=== PATIENT | female | born 1950 | race Caucasian/White ===

== ENCOUNTER → 2018-08-16 11:23 | Outpatient (CLI) | payer MEDICARE, SELFPAY ==
--- NOTE | 2018-08-16 | DI.MG.S_ITS ---
BILATERAL DIGITAL SCREENING MAMMOGRAM 3D/2D WITH CAD: 08/16/2018 CLINICAL: Routine screening. Comparison is made to exams dated: 06/26/2017 mammogram, 06/24/2016 mammogram, and 01/26/2015 mammogram - [facility]. The tissue of both breasts is extremely dense, which lowers the sensitivity of mammography. Current study was also evaluated with a Computer Aided Detection (CAD) system. No significant masses, calcifications, or other findings are seen in either breast. There has been no significant interval change. IMPRESSION: NEGATIVE There is no mammographic evidence of malignancy. A 1 year screening mammogram is recommended. This exam was interpreted at Station ID: [id number]. NOTE: For mammograms, a report in lay terms will be sent to the patient. Approximately 15% of breast malignancies will not be visualized mammographically. In the management of a palpable breast mass, a negative mammogram must not discourage biopsy of a clinically suspicious lesion. Electronically Signed By: Elina neff/paty:08/16/2018 12:37:27 letter sent: Normal Exam ACR BI-RADS Category 1: Negative 3341F
== END ==
PROVIDERS: Family Provider Family Medicine; PCP Nurse Practitioner Family; Visit Provider Internal Medicine
DX: Z12.31 Encounter for screening mammogram for malignant neoplasm of breast (principal)
CPT/HCPCS: 77063; 77067

== ENCOUNTER → 2019-11-13 08:35 | Outpatient (CLI) | payer MEDICARE, SELFPAY ==
--- NOTE | 2019-11-13 08:38 | DI.MG.S_ITS ---
BILATERAL DIGITAL SCREENING MAMMOGRAM 3D/2D WITH CAD: 11/13/2019 CLINICAL: Routine screening. Comparison is made to exams dated: 08/16/2018 mammogram, 06/26/2017 mammogram, and 06/24/2016 mammogram - [facility]. The tissue of both breasts is extremely dense, which lowers the sensitivity of mammography. Current study was also evaluated with a Computer Aided Detection (CAD) system. No significant masses, calcifications, or other findings are seen in either breast. There has been no significant interval change. IMPRESSION: NEGATIVE There is no mammographic evidence of malignancy. A 1 year screening mammogram is recommended. This exam was interpreted at Station ID: [id number]. NOTE: For mammograms, a report in lay terms will be sent to the patient. Approximately 15% of breast malignancies will not be visualized mammographically. In the management of a palpable breast mass, a negative mammogram must not discourage biopsy of a clinically suspicious lesion. Electronically Signed By: Princess anne/paty:11/13/2019 13:16:08 letter sent: Normal Exam ACR BI-RADS Category 1: Negative 3341F
[2019-11-13 09:24] LABS: Cholesterol 259 mg/dL (140-199); Glucose 113 mg/dL (80-110); Triglycerides 66 mg/dL (35-150)
[2019-11-13 09:36] LABS: HDL Cholesterol 120 mg/dL (40-60); LDL Cholesterol Calculated 126 mg/dL (<100)
== END ==
PROVIDERS: PCP Family Medicine; Visit Provider Family Medicine
DX: Z12.31 Encounter for screening mammogram for malignant neoplasm of breast (principal); Z13.220 Encounter for screening for lipoid disorders; Z13.1 Encounter for screening for diabetes mellitus
CPT/HCPCS: 36415; 77063; 77067; 80061; 82947

== ENCOUNTER → 2020-04-21 15:08 | Outpatient (CLI) | payer MEDICARE, SELFPAY ==
[2020-04-21 17:11] LABS: Hemoglobin A1C% w Est Avg Glu 5.5 % (4.0-6.0)
== END ==
PROVIDERS: PCP Family Medicine; Referring Provider Family Medicine; Visit Provider Family Medicine
DX: R73.9 Hyperglycemia, unspecified (principal)
CPT/HCPCS: 36415; 83036

== ENCOUNTER → 2020-07-17 09:12 | Outpatient (CLI) | payer MEDICARE, SELFPAY ==
--- NOTE | 2020-07-17 09:13 | DI.RAD.S_ITS ---
PROCEDURE: XR WRIST LT MIN 3V INDICATIONS: left wrist injury TECHNIQUE: 4 views of the wrist were acquired. COMPARISON: None. FINDINGS: Bones: Comminuted impacted intra-articular fracture of the distal radial metaphysis. Severe carpal and 1st CMC joint degeneration. Distal radioulnar joint degeneration. Soft tissues: No suspicious soft tissue calcifications. IMPRESSION: Comminuted impacted intra-articular fracture of the distal radial metaphysis. Dictated by: Steffen Dumont M.D. on 07/17/2020 at 10:40 Approved by: Steffen Dumont M.D. on 07/17/2020 at 10:42
== END ==
PROVIDERS: PCP Family Medicine; Referring Provider Family Medicine; Visit Provider Family Medicine
DX: S52.572A Other intraarticular fracture of lower end of left radius, initial encounter for closed fracture (principal); M25.532 Pain in left wrist; X58.XXXA Exposure to other specified factors, initial encounter
CPT/HCPCS: 73110

== ENCOUNTER → 2020-12-03 15:08 | Outpatient (CLI) | payer OTHER, SELFPAY ==
--- NOTE | 2020-12-03 15:10 | DI.MG.S_ITS ---
BILATERAL DIGITAL SCREENING MAMMOGRAM 3D/2D WITH CAD: 12/03/2020 CLINICAL: Routine screening. Comparison is made to exams dated: 11/13/2019 mammogram, 08/16/2018 mammogram, and 06/26/2017 mammogram - [facility]. The tissue of both breasts is extremely dense, which lowers the sensitivity of mammography. Current study was also evaluated with a Computer Aided Detection (CAD) system. No significant masses, calcifications, or other findings are seen in either breast. There has been no significant interval change. IMPRESSION: NEGATIVE There is no mammographic evidence of malignancy. A 1 year screening mammogram is recommended. This exam was interpreted at Station ID: [id number]. NOTE: For mammograms, a report in lay terms will be sent to the patient. Approximately 15% of breast malignancies will not be visualized mammographically. In the management of a palpable breast mass, a negative mammogram must not discourage biopsy of a clinically suspicious lesion. Electronically Signed By: Dread johnston/paty:12/04/2020 18:42:35 letter sent: Normal Exam ACR BI-RADS Category 1: Negative 3341F
== END ==
PROVIDERS: PCP Family Medicine; Referring Provider Orthopaedic Surgery; Visit Provider Orthopaedic Surgery
DX: Z12.31 Encounter for screening mammogram for malignant neoplasm of breast (principal); S52.502A Unspecified fracture of the lower end of left radius, initial encounter for closed fracture; M85.852 Other specified disorders of bone density and structure, left thigh; Z78.0 Asymptomatic menopausal state; Z87.891 Personal history of nicotine dependence
CPT/HCPCS: 77063; 77067; 77080

== ENCOUNTER → 2022-01-19 16:20 | Outpatient (CLI) | payer MEDICARE, SELFPAY ==
--- NOTE | 2022-01-19 16:24 | DI.RAD.S_ITS ---
PROCEDURE: XR LUMBAR SPINE 2-3V INDICATIONS: R low back pain, lifting injury TECHNIQUE: 3 views of the lumbar spine were acquired. COMPARISON: None. FINDINGS: Bones: 5 [id number]-ajn-upzyvlv vertebrae are present. There is straightening of normal lumbar lordosis. Degenerative endplate changes and bilateral facet arthrosis throughout lumbar spine is seen. No vertebral body compression fractures. No suspicious bony lesions. Soft tissues: Overlying bowel gas pattern is normal. No suspicious soft tissue calcifications. IMPRESSION: Degenerative disc disease throughout lumbar spine. No acute compression fracture or spondylolisthesis. Dictated by: Den Garcia M.D. on 01/19/2022 at 16:34 Approved by: Den Garcia M.D. on 01/19/2022 at 16:35
== END ==
PROVIDERS: PCP Family Medicine; Referring Provider Physician Assistant; Visit Provider Physician Assistant
DX: M51.36 Other intervertebral disc degeneration, lumbar region (principal); M54.50 Low back pain, unspecified
CPT/HCPCS: 72100

== ENCOUNTER → 2022-03-24 10:03 | Outpatient (CLI) | payer MEDICARE, SELFPAY ==
[2022-03-24 12:06] LABS: BUN Creatinine Ratio 15.3 (6-22); Blood Urea Nitrogen 13 mg/dL (7-17); Calcium 8.7 mg/dL (8.4-10.2); Carbon Dioxide 31 mmol/L (22-32); Chloride 99 mmol/L (98-107); Estimated Glomerular Filt Rate > 60 mL/min (>60); Glucose 95 mg/dL (80-110); HEMOLYSIS < 15 (0-50); Potassium 4.3 mmol/L (3.4-5.1); Sodium 135 mmol/L (137-145)
== END ==
PROVIDERS: PCP Family Medicine; Referring Provider Family Medicine; Visit Provider Family Medicine
DX: R51.9 Headache, unspecified (principal)
CPT/HCPCS: 36415; 80048

== ENCOUNTER → 2022-03-25 11:46 | Outpatient (CLI) | payer MEDICARE, SELFPAY ==
--- NOTE | 2022-03-25 11:47 | DI.CT.S_ITS ---
PROCEDURE: CT HEAD/BRAIN WO/W CON INDICATIONS: Severe headache recurrent right occipital area TECHNIQUE: 4.5 mm thick angled axial sections acquired from the foramen magnum to the vertex both before and after the administration of intravenous contrast, with coronal and sagittal reformats. For radiation dose reduction, the following was used: automated exposure control, adjustment of mA and/or kV according to patient size. COMPARISON: None. FINDINGS: Image quality: Excellent. CSF spaces: Basal cisterns are patent. No extra-axial fluid collections. Ventricles are symmetric in size and shape. Brain: No midline shift. No intracranial bleeds or masses. No abnormal intracranial enhancement. In this patient with this given history, scrutiny is given to the right occipital region. No masses or abnormal enhancement can be seen within this region. There is cerebral volume loss for age. There is periventricular white matter chronic small vessel ischemic change. There is intracranial internal carotid artery atherosclerosis. Skull and face: Calvarium and visualized facial bones appear intact, without suspicious lesions. Incidental note is made of a soft tissue lipoma within the left posterolateral neck, as on series 2, image 1 measuring 16 mm. Sinuses: Visualized sinuses and mastoids are clear. IMPRESSION: Unremarkable intracranial study for age, without a cause of the patient's right occipital headaches identified. If it would be helpful for clinical management decision making, please consider a dedicated, scheduled brain MRI (without and with contrast) for further evaluation (assuming that there is no contraindication). Dictated by: Corey Han M.D. on 03/25/2022 at 11:15 Approved by: Corey Han M.D. on 03/25/2022 at 11:17
== END ==
PROVIDERS: PCP Family Medicine; Referring Provider Physician Assistant; Visit Provider Physician Assistant
DX: R51.9 Headache, unspecified (principal)
CPT/HCPCS: 70470; Q9967

== ENCOUNTER → 2022-04-01 08:57 | Outpatient (CLI) | payer MEDICARE, SELFPAY ==
[2022-04-04 09:57] LABS: Fecal Immunochemical Test Negative (Negative)
== END ==
PROVIDERS: PCP Family Medicine; Referring Provider Family Medicine; Visit Provider Family Medicine
DX: Z12.11 Encounter for screening for malignant neoplasm of colon (principal)
CPT/HCPCS: 82274

== ENCOUNTER → 2022-04-13 16:05 | Outpatient (CLI) | payer MEDICARE, SELFPAY ==
--- NOTE | 2022-04-13 16:08 | DI.MG.S_ITS ---
BILATERAL DIGITAL SCREENING MAMMOGRAM 3D/2D WITH CAD: 04/13/2022 CLINICAL: Routine screening. Comparison is made to exams dated: 12/03/2020 mammogram, 11/13/2019 mammogram, and 08/16/2018 mammogram - . The tissue of both breasts is extremely dense, which lowers the sensitivity of mammography. Current study was also evaluated with a Computer Aided Detection (CAD) system. No significant masses, calcifications, or other findings are seen in either breast. There has been no significant interval change. IMPRESSION: NEGATIVE There is no mammographic evidence of malignancy. A 1 year screening mammogram is recommended. Based on the Tyrer Cuzick model (a risk assessment model) the patient's lifetime risk is 12.0% and her 10 year risk is 7.2%. According to the ACR, ACS, and NCCN guidelines, an annual breast MRI exam along with mammogram is recommended if the patient's lifetime risk is 20% or greater. This exam was interpreted at Station ID: [id number]. NOTE: For mammograms, a report in lay terms will be sent to the patient. Approximately 15% of breast malignancies will not be visualized mammographically. In the management of a palpable breast mass, a negative mammogram must not discourage biopsy of a clinically suspicious lesion. Electronically Signed By: Dread johnston/paty:04/14/2022 07:54:47 letter sent: Normal Exam ACR BI-RADS Category 1: Negative 3341F
== END ==
PROVIDERS: PCP Family Medicine; Referring Provider Family Medicine; Visit Provider Family Medicine
DX: Z12.31 Encounter for screening mammogram for malignant neoplasm of breast (principal)
CPT/HCPCS: 77063; 77067

== ENCOUNTER 2023-01-10 08:41 | Day surgery (SDC) | payer MEDICARE, SELFPAY ==
--- NOTE | 2023-01-10 | PATH_ITS ---
[facility] Accession Number: [id number] No. of containers..01 Tissue . 01 Material submitted: . colon - ASCENDING COLON POLYP . 01 Diagnosis: Ascending Colon, Polyp, Biopsy: Colonic mucosa with mild superficial hyperplastic-type changes. Additional levels were examined. Negative for dysplasia and malignancy. MRV 01/13/2023 1346 Local . 01 Electronically signed: . Ade Barbosa MD, Pathologist NPI- [id number] . 01 Gross description: . ASCENDING COLON POLYP: Received in formalin are 2 fragment(s) of marcano, soft tissue measuring 0.2 x 0.2 x 0.1 cm to 0.5 x 0.2 x 0.2 cm submitted entirely in 1 cassette(s) /TYLER 01/11/2023 1928 Local . 01 Pathologist provided ICD-10: K63.5 . 01 CPT . 103912 Specimen Comment: A courtesy copy of this report has been sent to [phone] Performed at: [facility] [address] [place] [address] [id number] MD Kenan Rahman MD Phone: [phone]
[2023-01-10] MEDS: LACTATED RINGERS 1,000 ML 200 ML IV ×2 (09:05→10:37)
[2023-01-10 09:07] VITALS: BP 125/82; PULSE 55; RESP 16; TEMP 36.8; O2SAT 99; BMI 17.4
--- NOTE | 2023-01-10 09:45 | PM.HP.1 ---
History of Present Illness History of Present Illness Date Patient Seen: 01/10/23 Time Patient Seen: 09:45 Chief complaint: Screening Colonoscopy Narrative: The patient presents for colorectal screening. Colonoscopy 5 years ago notable for benign polyps.. No personal or family history of colon cancer. On further history denies any recent gastrointestinal symptoms. No nausea, vomiting, abdominal pain, loss of appetite, unexplained weight loss, change in bowel habits, or blood per rectum. Patient History Medical History Abnormal Pap smear of cervix (~1991) Chicken pox (~1959) Fractures (~2013) Measles (~1957) Mumps (~1956) Surgical History Anesthesia History of eyelid surgery (~2006) History of surgery Family & Social History Family History Mother COPD (chronic obstructive pulmonary disease) Social History: household members spouse lives independently Yes caregiver/support person No Tobacco & Substance use: Smoking Status Former smoker alcohol intake current alcohol intake frequency 0-2 drinks per day Substance Use Type does not use Meds Home Medications and Allergies Home Medications Medication Instructions Recorded Confirmed Type cholecalciferol (vitamin D3) 25 1,000 unit PO QDAY #0 tabs 08/15/16 01/10/23 History mcg (1,000 unit) tablet (Vitamin D3) vitamin B complex (B 1 tab PO DAILY 03/09/22 03/09/22 History Complex-Vitamin B12 tablet) Allergies Allergy/AdvReac Type Severity Reaction Status Date / Time No Known Drug Allergies Allergy Verified 01/10/23 08:54 Exam Vital Signs (past 8 hours): - 01/10/23 09:07 Temperature 98.2 F Pulse Rate 55 L Respiratory Rate 16 Blood Pressure 125/82 Pulse Oximetry 99 Oxygen Delivery Method Room Air Oxygen Delivery Method Room Air Narrative Exam Narrative: General adult woman alert oriented no acute distress Assessment & Plan Assessment & Plan narrative: The patient requires colorectal screening and colonoscopy is recommended. Technical details were discussed. Risks, benefits, alternatives explained. Risks including but not limited to myocardial infarction, aspiration, bleeding, pain, missed lesion, incomplete examination, need for further radiographic studies, colonic perforation, and need for major abdominal surgery were discussed. All questions were answered to their satisfaction, and they are in agreement with this plan.
[2023-01-10 10:28] VITALS: BP 95/48; PULSE 69; RESP 13; TEMP 36.1; O2SAT 96
--- NOTE | 2023-01-10 10:29 | P.OP.COLON_ITS ---
Operative Date/Time/Diagnoses Date of procedure: 01/10/23 Time of procedure: 10:29 Pre-op diagnosis: Personal history of colonic polyps Post-op diagnosis: other (Colonic polyp x1) Procedure & Clinicians Study performed: Colonoscopy and polypectomy Same procedure as scheduled: Yes Indications: Personal history of colonic polyps Surgeon: Kirill Peralta Procedure Notes Procedure in detail: The history and physical was performed/updated and the patient is ASA class is 2. The procedure was discussed in detail with the patient. Potential risks complications including infection, bleeding, missed diagnosis, perforation, need for surgery, and were explained. Their questions were answered and informed consent was obtained. Patient was brought to the procedure room and placed standard monitoring equipment. The patient's vital signs were monitored continuously throughout the entire procedure. Prior to starting time-out was performed. The patient was placed in the left lateral recumbent position. Procedural sedation was admini stered by anesthesia. Examination began with a thorough inspection of the perianal area there was no evidence of fissures, fistulae, external hemorrhoids or cutaneous malignancy. The colonoscopy scope was then placed into the anal canal and was advanced to the cecum, which was identified by the ileocecal valve, the appendiceal orifice and the confluence of the taenia. The scope was then slowly withdrawn examining colon thoroughly in all directions, irrigating it of any residual stool. Within the ascending colon there was a 3 mm polyp which was removed with biopsy forceps. On retroflexion within the rectum grade 2 internal hemorrhoids were noted The patient tolerated the procedure well. They will be discharged once criteria are met. The prep was of good/excellent quality. The withdrawl time was 7 minutes. Specimen(s): other (Ascending colonic polyp) Complications: none Impression: Colonic polyp Post-procedure Recommendations: High fiber diet Plan for aftercare: Follow-up is dependent on pathology findings Disposition: same day surgery
[2023-01-10 10:32] VITALS: BP 95/62; PULSE 61; RESP 17; O2SAT 95
[2023-01-10 10:37] VITALS: BP 96/62; PULSE 64; RESP 23; O2SAT 95
--- NOTE | 2023-01-10 10:41 | SUR.PHASEII ---
Patient sitting up drinking juice without difficulty.
[2023-01-10 10:43] VITALS: BP 107/61; PULSE 55; RESP 13; O2SAT 95
== END 2023-01-10 10:56 | disposition home or self-care (01) ==
PROVIDERS: PCP Family Medicine; Referring Provider Surgery; Visit Provider Surgery
PROC: 0DJD8ZZ Inspection of Lower Intestinal Tract, Via Natural or Artificial Opening Endoscopic (ICD-10-PCS; CPT 45378; principal; 2023-01-10 09:45)
DX: Z12.11 Encounter for screening for malignant neoplasm of colon (principal); Z86.010 Personal history of colon polyps; K64.1 Second degree hemorrhoids; K63.5 Polyp of colon
CPT/HCPCS: 45380; J2704

== ENCOUNTER → 2023-03-15 07:22 | Outpatient (CLI) | payer MEDICARE, SELFPAY ==
[2023-03-15 08:06] LABS: Alanine Aminotransferase 22 IU/L (<35); Albumin 4.4 g/dL (3.5-5.0); Albumin Globulin Ratio 1.6 (1.0-2.8); Alkaline Phosphatase 49 U/L (38-126); Aspartate Aminotransferase 28 IU/L (14-36); BUN Creatinine Ratio 13.4 (6-22); Bilirubin Total 0.7 mg/dL (0.2-1.3); Blood Urea Nitrogen 11 mg/dL (7-17); Carbon Dioxide 32 mmol/L (22-32); Chloride 101 mmol/L (98-107); Cholesterol 247 mg/dL (140-199); Estimated Glomerular Filt Rate > 60 mL/min (>60); Globulin 2.8 g/dL (1.7-4.1); Glucose 89 mg/dL (80-110); HEMOLYSIS < 15 (0-50); Potassium 4.4 mmol/L (3.4-5.1); Sodium 138 mmol/L (137-145); Total Protein 7.2 g/dL (6.3-8.2); Triglycerides 56 mg/dL (35-150)
[2023-03-15 08:14] LABS: HDL Cholesterol 143 mg/dL (40-60); LDL Cholesterol Calculated 93 mg/dL (<100)
[2023-03-15 08:49] LABS: Hep C Virus Ab w/Reflex Quant NEGATIVE s/c (NEGATIVE)
== END ==
PROVIDERS: PCP Family Medicine; Referring Provider Family Medicine; Visit Provider Family Medicine
DX: Z13.220 Encounter for screening for lipoid disorders (principal); M85.80 Other specified disorders of bone density and structure, unspecified site; Z13.9 Encounter for screening, unspecified
CPT/HCPCS: 36415; 80053; 80061; 86803

== ENCOUNTER → 2023-04-27 13:16 | Outpatient (CLI) | payer MEDICARE, SELFPAY ==
--- NOTE | 2023-04-27 13:17 | DI.MG.S_ITS ---
BILATERAL DIGITAL SCREENING MAMMOGRAM 3D/2D WITH CAD: 04/27/2023 CLINICAL: Routine screening. Comparison is made to exams dated: 04/13/2022 mammogram, 12/03/2020 mammogram, and 11/13/2019 mammogram - [facility]. Both breasts are extremely dense, which lowers the sensitivity of mammography (category d />75% glandular tissue). Current study was also evaluated with a Computer Aided Detection (CAD) system. There is a mole marker on the right breast. No significant masses, calcifications, or other findings are seen in either breast. There has been no significant interval change. IMPRESSION: NEGATIVE There is no mammographic evidence of malignancy. A 1 year screening mammogram is recommended. Based on the Tyrer Cuzick model (a risk assessment model) the patient's lifetime risk is 11.4% and her 10 year risk is 7.3%. According to the ACR, ACS, and NCCN guidelines, an annual breast MRI exam along with mammogram is recommended if the patient's lifetime risk is 20% or greater. This exam was interpreted at Station ID: [id number]. NOTE: For mammograms, a report in lay terms will be sent to the patient. Approximately 15% of breast malignancies will not be visualized mammographically. In the management of a palpable breast mass, a negative mammogram must not discourage biopsy of a clinically suspicious lesion. Electronically Signed By: Tj pedraza/paty:04/27/2023 15:47:11 letter sent: Normal Exam ACR BI-RADS Category 1: Negative 3341F
== END ==
PROVIDERS: PCP Family Medicine; Referring Provider Family Medicine; Visit Provider Family Medicine
DX: Z12.31 Encounter for screening mammogram for malignant neoplasm of breast (principal)
CPT/HCPCS: 77063; 77067

== ENCOUNTER → 2024-04-30 14:03 | Outpatient (CLI) | payer MEDICARE, SELFPAY ==
--- NOTE | 2024-04-30 14:04 | DI.MG.S_ITS ---
BILATERAL DIGITAL SCREENING MAMMOGRAM 3D/2D WITH CAD: 04/30/2024 CLINICAL: Routine screening. Comparison is made to exams dated: 04/27/2023 mammogram, 04/13/2022 mammogram, and 12/03/2020 mammogram - [facility]. Both breasts are extremely dense, which lowers the sensitivity of mammography (category d />75% glandular tissue). Current study was also evaluated with a Computer Aided Detection (CAD) system. No significant masses, calcifications, or other findings are seen in either breast. There has been no significant interval change. IMPRESSION: NEGATIVE There is no mammographic evidence of malignancy. A 1 year screening mammogram is recommended. Based on the Tyrer Cuzick model (a risk assessment model) the patient's lifetime risk is 10.8% and her 10 year risk is 7.4%. According to the ACR, ACS, and NCCN guidelines, an annual breast MRI exam along with mammogram is recommended if the patient's lifetime risk is 20% or greater. This exam was interpreted at Station ID: [id number]. NOTE: For mammograms, a report in lay terms will be sent to the patient. Approximately 15% of breast malignancies will not be visualized mammographically. In the management of a palpable breast mass, a negative mammogram must not discourage biopsy of a clinically suspicious lesion. Electronically Signed By: Jame coreas/paty:04/30/2024 15:58:13 letter sent: Normal Exam ACR BI-RADS Category 1: Negative 3341F
== END ==
PROVIDERS: PCP Family Medicine; Referring Provider Family Medicine; Visit Provider Family Medicine
DX: Z12.31 Encounter for screening mammogram for malignant neoplasm of breast (principal); R92.343 Mammographic extreme density, bilateral breasts
CPT/HCPCS: 77063; 77067

== ENCOUNTER → 2025-03-21 08:53 | Outpatient (CLI) | payer MEDICARE, SELFPAY ==
[2025-03-21 10:08] LABS: Cholesterol 258 mg/dL (140-199); Glucose 89 mg/dL (70-99); Triglycerides 59 mg/dL (35-150)
[2025-03-21 10:18] LABS: HDL Cholesterol 132 mg/dL (40-60); LDL Cholesterol Calculated 114 mg/dL (<100)
== END ==
PROVIDERS: PCP Family Medicine; Referring Provider Family Medicine; Visit Provider Family Medicine
DX: Z13.9 Encounter for screening, unspecified (principal)
CPT/HCPCS: 36415; 80061; 82947

== ENCOUNTER → 2025-03-27 14:11 | Outpatient (CLI) | payer MEDICARE, SELFPAY ==
--- NOTE | 2025-03-27 14:15 | DI.RAD.S_ITS ---
PROCEDURE: XR DEXA AXIAL SKELETON INDICATIONS: screening COMPARISON: [facility], , XR DEXA AXIAL SKELETON, 12/03/2020, 15:31. [facility], CR, DEXA AXIAL SKELETON, 06/26/2017, 14:55. FINDINGS: Lumbar Spine: Bone mineral density 1.087 g/cm2, T score 0.4, no significant change. Left Femoral Neck: Bone mineral density 0.633 g/cm2, T score -2.0. Left Hip: Bone mineral density 0.738 g/cm2, T score -1.7, decreased by 5%. Fracture Risk Calculation (when applicable): 10-year fracture risk of a major osteoporotic fracture 9.9 percent and of a hip fracture 2.4 percent. (T score greater or equal to -1.0 to: NORMAL) (T score from -1.1 to -2.4: OSTEOPENIA) (T score less than or equal to -2.5: OSTEOPOROSIS) IMPRESSION: Low bone mineral density (osteopenia) by WHO classification. Follow-up guidelines as follows: Osteoporosis: Consider a repeat DEXA and Vertebral Fracture Assessment (VFA) exam in 2 years or sooner if medically necessary, to reassess this patient's status. Osteopenia: Consider a repeat DEXA in 2-3 years to reassess this patient's status, or if there is a new clinical indication. Normal: Consider a repeat DEXA in 5 years or sooner, or if there is a new clinical indication. All treatment decisions require clinical judgment and consideration of individual patient factors, including patient preferences, comorbidities, previous drug use, risk factors not captured in the FRAX model (e.g., frailty, falls, vitamin D deficiency, increased bone turnover, interval significant decline in bone density ) and possible under- or over-estimation of fracture risk by FRAX. In addition, the NOF Guide recommends that FDA-approved medical therapies be considered in postmenopausal women and men age >= 50 years with a: * Hip or vertebral (clinical or morphometric) fracture * T-score of <=-2.5 at the spine or hip * Ten-year fracture probability by FRAX of >= 3% for hip fracture or >=20% for major osteoporotic fracture. Dictated by: Fernando Orr M.D. on 03/28/2025 at 10:19 Approved by: Fernando Orr M.D. on 03/28/2025 at 10:19
== END ==
PROVIDERS: PCP Family Medicine; Referring Provider Family Medicine; Visit Provider Family Medicine
DX: M85.89 Other specified disorders of bone density and structure, multiple sites (principal)
CPT/HCPCS: 77080

== ENCOUNTER → 2025-05-02 11:49 | Outpatient (CLI) | payer MEDICARE, SELFPAY ==
--- NOTE | 2025-05-02 11:49 | DI.MG.S_ITS ---
MM screening mammo BI: 05/02/2025. BI-RADS: 1 CLINICAL: 74-year old female for bilateral screening mammogram. Tyrer-Cuzick lifetime risk of 4.5%. No personal or first-degree family history of breast cancer. PRIOR EXAMS 04/30/2024, 04/27/2023, 04/13/2022, 12/03/2020. MAMMOGRAPHY TECHNIQUE: 2D and 3D (tomosynthesis) digital mammographic views obtained, with additional images as needed for full coverage. Current study was also evaluated with a Computer Aided Detection (CAD) system. DENSITY D. The breasts are extremely dense, which lowers the sensitivity of mammography. MAMMOGRAPHY FINDINGS Bilateral: No suspicious mass, asymmetry, microcalcification, or other abnormality seen. IMPRESSION: * No evidence of malignancy. RECOMMENDATIONS Bilateral * Annual screening mammography. OVERALL ASSESSMENT CATEGORY BI-RADS-1: Negative. The [employer] recommends annual screening mammography beginning at age 40 for women with average risk of breast cancer. ELECTRONICALLY SIGNED: Crystal Gil M.D. on 05/02/2025 at 04:08:21 PM PT Interpreting Station ID: [id number]
== END ==
LOC: MAMMO 11:49
PROVIDERS: PCP Family Medicine; Referring Provider Family Medicine; Visit Provider Family Medicine
DX: Z12.31 Encounter for screening mammogram for malignant neoplasm of breast (principal); R92.343 Mammographic extreme density, bilateral breasts
CPT/HCPCS: 77063; 77067